=== PATIENT | female | born 1970 | race Caucasian/White ===

== ENCOUNTER 2018-02-09 14:09 | Inpatient (IN) | payer OTHER ==
[~2018-02-09] VITALS: Ht 170.2 cm; Wt 67.6 kg
--- NOTE | ~2018-02-09 | EKG ---
[place] [address] [facility] [place] [address] ELECTROCARDIOGRAM REPORT Name: LUIS PETE Room #: 211-P [facility]#: [id number] Admission: 02/09/18 Attend Phys: Luis Sanchez MD Discharge: Date of : 74 Report #: [id number] THIS REPORT FOR: //name// [facility] ED Test Date: 2018-02-09 Test Time: 17:30:18 Pat Name: LUIS PETE Department: Room: Gender: F Acid Changer: KF : 1970 Requested By: Adonis Castro Order Number: [id number] MD: Mehdi Rai Measurements Intervals [place] Rate: 121 P: 32 FL: 158 QRS: -30 QRSD: 84 T: 9 QT: 296 QTc: 420 Interpretive Statements Sinus tachycardia Poor R wave progression No previous ECG available for comparison Electronically Signed On 02-10-2018 8:05:37 CDT by Mehdi Rai [email or web address] <ELECTRONICALLY SIGNED> By: Mehdi Rai MD, [facility] 02/10/18 0805 1730 1730 Mehdi Rai MD, FACC /EPI
--- NOTE | ~2018-02-09 | 2DMMODE ---
[facility] [address] [place] [address] 2 D/M-MODE ECHOCARDIOGRAM Name: LUIS PETE Room #: 211-P ADM IN M.R.#: [id number] Admission: 02/09/18 Attend Phys: Luis Sanchez MD Discharge: Date of : 74 Date of Service: 02/10/18 1509 Report #: [id number] THIS REPORT FOR: //name// APPROVED REPORT Study performed: 02/10/2018 14:03:53 EXAM: Comprehensive 2D, Doppler, and color-flow Echocardiogram Patient Location: Bedside Room #: 211 Status: routine BSA: 1.74 HR: 76 bpm BP: 127/77 mmHg Other Information Study Quality: Fair Indications Chest Pain 2D Dimensions RVDd: 29.80 mm LVEF(%): 60.39 (>50%) IVSd: 8.88 (7-11mm) LVOT Diam: 21.41 (18-24mm) LVDd: 48.36 mm PWd: 8.71 (7-11mm) Ascending Ao: 28.89 (22-36mm) LVDs: 32.76 (25-40mm) Aortic Root: 29.68 mm IVC: 18.00 mm Bolden's LVEF: 60.39 % Volumes Left Atrial Volume (Systole) Single Plane 4CH: 33.08 mL Single Plane 2CH: 47.34 mL LA ESV Index: 25.00 mL/m2 Aortic Valve AoV Peak Sukhwinder.: 1.29 m/s AO Peak Gr.: 6.68 mmHg LVOT Max P.87 mmHg LVOT Max V: 0.98 m/s CAIT Vmax: 2.74 cm2 Mitral Valve E/A Ratio: 1.4 MV Decel. Time: 224.48 ms MV E Max Sukhwinder.: 0.87 m/s [facility] [place] [address] 2 D/M-MODE ECHOCARDIOGRAM Name: LUIS PETE Room #: 211-P [facility] IN .R.#: [id number] Admission: 02/09/18 Attend Phys: Luis Sanchez MD Discharge: Date of : 74 Date of Service: 02/10/18 1509 Report #: [id number] MV A Sukhwinder.: 0.63 m/s MV PHT: 65.10 ms IVRT: 78.43 ms Pulmonary Valve PV Peak Sukhwinder.: 1.01 m/s PV Peak Gr.: 4.08 mmHg Pulmonary Vein P Vein S: 0.34 m/s P Vein A: 0.32 m/s P Vein D: 0.19 m/s P Vein A Dur.: 87.7 msec P Vein S/D Ratio: 1.79 Tricuspid Valve TR Peak Sukhwinder.: 1.80 m/s TR Peak Gr.: 12.97 mmHg Left Ventricle The left ventricle is normal size. There is normal left ventricular wall thickness. The left ventricular systolic function is normal. The left ventricular ejection fraction is within the normal range. LVEF is 55-60%. The left ventricular diastolic function is normal. Right Ventricle The right ventricle is normal size. The right ventricular systolic function is normal. Atria The left atrium size is normal. The right atrium size is normal. Aortic Valve The aortic valve is normal in structure. No aortic regurgitation is present. There is no aortic valvular stenosis. Mitral Valve The mitral valve is normal in structure. There is no mitral valve regurgitation noted. No evidence of mitral valve stenosis. Tricuspid Valve The tricuspid valve is normal in structure. There is trace tricuspid regurgitation. The right atrial pressure is estimated at mmHg. There is no pulmonary hypertension. Pulmonic Valve The pulmonary valve is normal in structure. There is no pulmonic valvular regurgitation. [place] [id number] 2 D/M-MODE ECHOCARDIOGRAM Name: LUIS PETE Room #: 211-P [facility] IN ..#: [id number] Admission: 02/09/18 Attend Phys: Luis Sanchez MD Discharge: Date of : 74 Date of Service: 02/10/18 1509 Report #: [id number] Great Vessels The aortic root is normal in size. IVC is normal in size and collapses >50% with inspiration. Pericardium There is no pericardial effusion. <Conclusion> The left ventricle is normal size. LVEF is 55-60%. The aortic valve is normal in structure. The mitral valve is normal in structure. The tricuspid valve is normal in structure. There is trace tricuspid regurgitation. The right atrial pressure is estimated at mmHg. There is no pulmonary hypertension. The pulmonary valve is normal in structure. The aortic root is normal in size. There is no pericardial effusion. <ELECTRONICALLY SIGNED> By: Steven Gleason MD 02/10/18 1509 1509 1509 Steven Gleason MD /INF
[2018-02-09 14:14] VITALS: BP 143/69
[2018-02-09 14:35] LABS: ABSOLUTE NEUTROPHILS 5.5 thou/uL (1.4-8.2); BASOPHILS 0.7 % (0.0-2.0); EOSINOPHILS 1.3 % (0.0-3.0); HEMOGLOBIN 16.1 gm/dL (12.0-15.0); MCH 30.3 pg (26.0-34.0); MCHC 34.2 g/dL (28.0-37.0); MCV 88.4 fL (80.0-100.0); MONOCYTES 5.8 % (1.0-8.0); PLATELET COUNT 295 thou/uL (150-400); POLYS 60.2 % (36.0-66.0); RBC 5.32 mil/uL (4.20-5.00); WBC 9.1 thou/uL (4.0-11.0)
[2018-02-09 14:50] LABS: APTT 26.7 Seconds (24.5-32.8); PROTIME 9.8 Seconds (9.3-11.4)
[2018-02-09 14:57] LABS: CALCIUM 9.6 mg/dL (8.5-10.1); POTASSIUM 4.1 mmol/L (3.5-5.1)
[2018-02-09] MEDS ORDERED: NEURONTIN 300300 M1 PO (16:09)
[2018-02-09] MEDS ORDERED: ZOLPIDEM TART12.5 MG PO (16:09)
[2018-02-09] MEDS ORDERED: CLONAZEPAM 1 MG1 M1 PO (16:09)
[2018-02-09] MEDS ORDERED: KLONOPIN1 MG PO (16:10)
[2018-02-09 17:31] LABS: URINE BILIRUBIN NEGATIVE (Negative); URINE BLOOD NEGATIVE (Negative); URINE CLARITY CLEAR; URINE COLOR YELLOW; URINE GLUCOSE-RANDOM* NEGATIVE (Negative); URINE KETONES NEGATIVE (Negative); URINE LEUKOCYTES-REFLEX NEGATIVE (Negative); URINE NITRITE-REFLEX NEGATIVE (Negative); URINE PROTEIN (DIPSTICK) NEGATIVE (Negative); URINE SPECIFIC GRAVITY <= 1.005 (1.005-1.035); URINE UROBILINOGEN 0.2 E.U./dl (0.2-1.0)
[2018-02-09 17:39] LABS: AMP/METHAMP Negative (Negative); BARBITURATES Negative (Negative); BENZODIAZEPINES Negative (Negative); COCAINE Negative (Negative); METHADONE Negative (Negative); OPIATES POSITIVE (Negative); PCP Negative (Negative)
[2018-02-09] MEDS ORDERED: POTASSIUM20 PO (17:57)
[2018-02-09] MEDS ORDERED: VITAMIN D2000 UNIT PO (17:58)
[2018-02-09] MEDS ORDERED: COUMADIN 5 MG TA5 M1 PO (17:59)
[2018-02-09 21:31] VITALS: BP 138/91
[2018-02-10 00:41] VITALS: BP 138/91
[2018-02-10 04:55] VITALS: BP 116/76
[2018-02-10 07:05] VITALS: BP 130/94
[2018-02-10 11:57] VITALS: BP 127/77
[2018-02-10 15:03] VITALS: BP 99/53
[2018-02-10 18:22] LABS: PROTIME 9.8 Seconds (9.3-11.4)
[2018-02-10 19:54] VITALS: BP 104/64
[2018-02-11 03:31] LABS: PROTIME 9.8 Seconds (9.3-11.4)
[2018-02-11 05:24] VITALS: BP 92/60
[2018-02-11 08:34] VITALS: BP 138/80
[2018-02-11 12:40] VITALS: BP 114/75
[2018-02-11 14:37] VITALS: BP 114/75
[2018-02-11 16:37] VITALS: BP 98/51
[2018-02-11] MEDS ORDERED: POTASSIUM20 PO (17:10)
[2018-02-11] MEDS ORDERED: CLONAZEPAM 1 MG1 M1 PO (17:10)
[2018-02-11] MEDS ORDERED: NEURONTIN 300300 M1 PO (17:10)
[2018-02-11] MEDS ORDERED: ENOXAPARIN60 MG/0.1 SUBQ (17:10)
[2018-02-11] MEDS ORDERED: PERCOCET PO (17:10)
[2018-02-11] MEDS ORDERED: COUMADIN 5 MG TA5 M1 PO (17:10)
[2018-02-11] MEDS ORDERED: ZOLPIDEM TART12.5 MG PO (17:10)
[2018-02-11 17:51] VITALS: BP 121/72
== END 2018-02-11 18:09 | disposition home or self-care (01) | DRG 313 ==
LOC: ER 14:09 → 2N 18:22 → EROBS 18:22 → 2N 21:12 → ENTRNSPT 02-11 17:42 → 2N 02-11 18:09
PROVIDERS: Emergency Medicine; Nurse Practitioner Gerontology; Physician Assistant
DX: R07.89 Other chest pain (principal); D68.51 Activated protein C resistance; G47.00 Insomnia, unspecified; F41.9 Anxiety disorder, unspecified; F43.10 Post-traumatic stress disorder, unspecified; G62.9 Polyneuropathy, unspecified; F39 Unspecified mood [affective] disorder; Y93.89 Activity, other specified; Z88.2 Allergy status to sulfonamides; Z90.710 Acquired absence of both cervix and uterus; Z82.49 Family history of ischemic heart disease and other diseases of the circulatory system; Z86.718 Personal history of other venous thrombosis and embolism; Z86.711 Personal history of pulmonary embolism; Z79.899 Other long term (current) drug therapy; Z87.81 Personal history of (healed) traumatic fracture; X58.XXXA Exposure to other specified factors, initial encounter; Y92.89 Other specified places as the place of occurrence of the external cause; Y99.8 Other external cause status
CPT/HCPCS: 10081